=== PATIENT | female | born 1960 | race Caucasian/White ===

== ENCOUNTER → 2018-03-10 | Outpatient (CLI) | payer OTHER | END | disposition home or self-care (01) | LOC: US 14:03 | DX: E11.21 Type 2 diabetes mellitus with diabetic nephropathy (principal); K76.89 Other specified diseases of liver; I12.9 Hypertensive chronic kidney disease with stage 1 through stage 4 chronic kidney disease, or unspecified chronic kidney disease; N18.2 Chronic kidney disease, stage 2 (mild) | CPT/HCPCS: 76770 ==

== ENCOUNTER → 2020-11-07 | Outpatient (CLI) | payer MEDICARE, OTHER ==
[2020-10-04 15:00] VITALS: BP 138/60
[~2020-11-07] MED LIST: ALBU2.5V8 INH; ALPR0.25 PO; ASPI-482 PO; ASPI325T8 PO; BISA5TAB4 PO; BRIM5DRO2 EACHEYE; CLOT15CR3 TP; CRESTOR10 MG PO; CYCL5TAB PO; DEXT10CA10 PO; DEXT10TA23 PO; DEXT10TA38 PO; HYDR-2145 PO; HYDR-2761 PO; HYDR-3164 PO; INSU100C4 SQ; INSU100I11 SQ; INSU100I13 SQ; INSU100V8 SQ; INSU200I4 SQ; LATA7.5D EACHEYE; LISI-334 PO; LISI2.5T PO; LOSA25TA12 PO; METH-38 PO; METO10SO PO; METO5TAB55 PO; NAPR250T6 PO; ONDA4TAB12 PO; OXYC1TAB15 PO; PANT40TA77 PO; POLY17PO28 PO; PROM118S5 PO; TETR15DR14 OP; VENL75CA PO
--- NOTE | 2020-11-08 09:19 | RAD ---
Bilateral lower extremity arterial duplex ultrasound 11/08/2020 INDICATION: Bilateral occurring nonhealing wounds COMPARISON STUDY: CT of the abdomen and pelvis with contrast October 02, 2020 TECHNIQUE: Ultrasound evaluation of the major arteries of the bilateral lower extremities was perform ed including color Doppler imaging with spectral analysis. FINDINGS: There is diffuse severe atherosclerotic vascular disease with extensive peripheral arterial calcifica tion. Irregularity throughout the right common femoral artery is seen with blunting of waveforms. Pro ximal right profunda artery is grossly patent. There appears to be high-grade stenosis involving the proximal right SFA with elevated velocities to 220 cm/s in significant narrowing on color Doppler harleen ging. The mid right superficial femoral artery appears to be occluded. Is distal reconstitution of th e SFA, with prominent collaterals noted adjacent to the distal SFA. The popliteal artery is calcified and irregular with weak monophasic flow but appears to be grossly patent. All 3 runoff vessels demon strate monophasic flow, likely due to severity of inflow disease but appear to be grossly patent. Left common femoral artery is calcified but appears to be grossly patent. Proximal left profunda skyla ry is patent. The left SFA is occluded proximally. There is distal reconstitution. Left popliteal art anne demonstrate weak monophasic flow but appears to be patent. Evaluation of runoff vessels is limite d given the severity of inflow disease, though all 3 runoff vessels appear to be grossly patent. IMPRESSION: Severe diffuse peripheral vascular disease with apparent occlusion of the bilateral super ficial femoral arteries. Runoff vessels appear to be grossly patent. Given the severity of disease pa tient body habitus recommend CT angiography of the abdomen and pelvis with bilateral lower extremity runoff to aid in planning for subsequent endovascular and/or surgical intervention. Electronically signed by: Jose Guadalupe Casiano MD (11/08/2020 9:17 AM) [id number]
== END ==
LOC: US 14:10
PROVIDERS: ATTEND Emergency Medicine Undersea and Hyperbaric Medicine
DX: I70.203 Unspecified atherosclerosis of native arteries of extremities, bilateral legs (principal); L97.429 Non-pressure chronic ulcer of left heel and midfoot with unspecified severity; L97.419 Non-pressure chronic ulcer of right heel and midfoot with unspecified severity
CPT/HCPCS: 93925

== ENCOUNTER → 2020-11-13 | Outpatient (CLI) | payer MEDICARE, OTHER ==
[2020-10-04 15:00] VITALS: BP 138/60
[~2020-11-13] MED LIST changes: +ACET1TAB33 PO; +CRESTOR40 MG PO; +IOHEXOL 350 MG/ML 100 ML VIAL. IV ONE; -LISI-334 PO; +LISI20TA18 PO; -LOSA25TA12 PO; +LOSA25TA4 PO; +NAPR-699 PO; -NAPR250T6 PO; -POLY17PO28 PO; +POLY17PO52 PO
[2020-11-13 14:07] LABS: CREATININE 0.6 mg/dL (0.6-1.0)
--- NOTE | 2020-11-13 16:16 | RAD ---
CT angiography of the abdomen, pelvis, and bilateral lower extremities 11/13/2020 INDICATION: Bilateral nonhealing wounds. COMPARISON STUDY: Recent lower extremity arterial duplex ultrasound demonstrating bilateral SFA occlu sions. Discussion: Imaging of the abdomen, pelvis, and lower extremities was performed following the adminis tration of IV contrast. Vascular findings: Visualized descending thoracic aorta is unremarkable. There is diffuse atherosclerotic vascular disease involving the abdominal aorta. Mild narrowing of th e proximal most abdominal aorta. Plaque is seen. There is no evidence of abdominal aortic aneurysm or dissection. Celiac artery, SMA, and renal arteries appear patent. There are 4 right-sided renal skyla marisol. There are 2 left-sided renal arteries. The inferior abdominal aorta is circumferentially calcif ied and tapers resulting in mild stenosis. Mild stenosis seen in the osteopenic the bilateral common iliac arteries The more distal l right common iliac artery is patent. Right internal iliac artery is patent. Right external iliac artery is patent. Right common femoral artery mildly irregular but patent. The right profunda artery is patent. There is near occlusion of the right SFA at its ostium. There is then tota l occlusion of the proximal right SFA. There is reconstitution in the adductor canal. The popliteal a rtery is patent. All 3 runoff vessels are patent to the ankle. The dorsalis pedis artery and lateral plantar artery visualized into the foot. The left common iliac artery is otherwise patent. There is moderate stenosis of the left internal sabrina ac artery. Left the left external iliac artery is patent.. Left common femoral artery is mildly calci fied but patent. Left profunda artery is patent. There is occlusion of the left SFA at its origin aga in extending to the adductor canal where there is reconstitution. The eafru-lve-ogsx popliteal artery is mildly stenotic.. The remaining popliteal artery is patent. All 3 runoff vessels are patent on th e left with level of the ankle. Proximal lateral plantar and dorsalis pedis arteries are patent on th e left. 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 This is unchanged from prior study. Solid viscera of the abdome n demonstrate no acute abnormality. There is no bowel obstruction. No free fluid or free air is seen diastases of the abdominal rectus musculature noted. Compression deformities of the L1 and L2 vertebr al bodies noted, unchanged with respect to comparison studies. IMPRESSION: 1.Severe diffuse atherosclerotic vascular disease. With long segment occlusions of the bilateral supe rficial femoral arteries from the proximal aspect of these vessels to the adductor canal. 2. No hemodynamically significant aortoiliac stenosis or runoff vessel disease was identified. All 3 runoff vessels. Be patent and extend into patent proximal dorsalis pedis and lateral plantar arteries CT DOSING PQRS STATEMENT: One or more of the following individualized dose reduction techniques were utilized for this examinat ion: 1. Automated exposure control 2. Adjustment of the mA and/or kV according to patient size 3. Use of iterative reconstruction technique Electronically signed by: Jose Guadalupe Casiano MD (11/13/2020 4:14 PM) [id number]
== END ==
LOC: CT 13:28
PROVIDERS: ATTEND Emergency Medicine Undersea and Hyperbaric Medicine
DX: I74.5 Embolism and thrombosis of iliac artery (principal); I74.3 Embolism and thrombosis of arteries of the lower extremities; I70.203 Unspecified atherosclerosis of native arteries of extremities, bilateral legs; M85.88 Other specified disorders of bone density and structure, other site
CPT/HCPCS: 36415; 75635; 82565; 84520; Q9967

== ENCOUNTER 2020-11-28 08:05 | Outpatient (CLI) | payer MEDICARE, OTHER ==
[~2020-11-28] VITALS: Ht 152.4 cm; Wt 106.6 kg
[2020-11-28] VITALS (11 sets, daily range): BP systolic 135–170; BP diastolic 64–88
[~2020-11-28 08:05] MED LIST changes: -ACET1TAB33 PO; -CRESTOR40 MG PO; -IOHEXOL 350 MG/ML 100 ML VIAL. IV ONE; +LOSA25TA12 PO; -LOSA25TA4 PO; -NAPR-699 PO; +NAPR250T6 PO; +POLY17PO28 PO; -POLY17PO52 PO
[2020-11-28 09:22] LABS: RED BLOOD COUNT 4.91 x10^6/uL (3.50-5.40); WHITE BLOOD COUNT 10.3 x10^3/uL (4.0-11.0)
[2020-11-28 09:23] LABS: BASO # 0.1 x10^3/uL (0.0-0.2); BASO % 1 % (0-3); EOS # 0.5 x10^3/uL (0.0-0.7); EOS % 4 % (0-3); HEMOGLOBIN 12.9 g/dL (12.0-15.5); LYMPH # 2.6 x10^3/uL (1.0-4.8); LYMPH % 25 % (24-48); MEAN CORPUSCULAR HEMOGLOBIN 26 pg (25-35); MEAN CORPUSCULAR HGB CONC 33 g/dL (31-37); MEAN CORPUSCULAR VOLUME 79 fL (79-100); MONO # 0.9 x10^3/uL (0.0-1.1); MONO % 9 % (0-9); NEUT # 6.3 x10^3/uL (1.8-7.7); NEUT % 61 % (31-73); PLATELET COUNT 324 x10^3/uL (140-400); RED CELL DISTRIBUTION WIDTH 14.5 % (11.5-14.5)
[2020-11-28 09:30] LABS: CALCIUM 9.8 mg/dL (8.5-10.1); CREATININE 0.7 mg/dL (0.6-1.0); GFR 85.4; POTASSIUM 3.8 mmol/L (3.5-5.1)
[2020-11-28 09:37] LABS: ALBUMIN 3.2 g/dL (3.4-5.0); ALBUMIN/GLOBULIN RATIO 0.8 (1.0-1.7); TOTAL BILIRUBIN 0.5 mg/dL (0.2-1.0)
[2020-11-28 09:38] LABS: PROTHROMBIN TIME PATIENT 11.9 SEC (11.7-14.0)
[2020-11-28] MEDS ORDERED: HEPARIN for ARTERIAL LINE 1,500 ML ONE (10:48)
[2020-11-28] MEDS ORDERED: IODIXANOL 320 MG/ML 100 ML VIAL. ONE (10:48)
[2020-11-28] MEDS ORDERED: LIDOCAINE WITH 8.4% SOD BICARB 3 ML DISP.SYRIN. ONE (10:48)
[2020-11-28] MEDS ORDERED: HEPARIN for IV BOLUS 10,000 UNIT/10 ML VIAL. ONE (11:05)
[2020-11-28] MEDS ORDERED: MIDAZOLAM HCL/PF 5 MG/5 ML VIAL. ONE (11:05)
[2020-11-28] MEDS ORDERED: fentaNYL PF VIAL 100 MCG/2 ML VIAL ONE ×2 (11:05→12:14)
[2020-11-28] MEDS ORDERED: MIDAZOLAM HCL/PF 5 MG/5 ML VIAL. IV ONE (12:45)
[2020-11-28] MEDS ORDERED: LIDOCAINE WITH 8.4% SOD BICARB 3 ML DISP.SYRIN. IJ ONE (12:45)
[2020-11-28] MEDS ORDERED: fentaNYL PF VIAL 100 MCG/2 ML VIAL IV ONE (12:45)
[2020-11-28] MEDS ORDERED: IODIXANOL 320 MG/ML 100 ML VIAL. IART ONE (12:45)
[2020-11-28] MEDS ORDERED: HEPARIN for IV BOLUS 10,000 UNIT/10 ML VIAL. IVP ONE (12:45)
[2020-11-28] MEDS ORDERED: hydrALAZINE 20 MG/ML VIAL. ONE (12:48)
[2020-11-28] MEDS ORDERED: CONTRAST GIVEN. MC PRN (13:00)
--- NOTE | 2020-11-28 13:54 | NUR ---
Notified Dr. Casiano of patient's increased itching, redness on face, arms. Order received to give 50mg IV Benadryl. Medications given were not known allergies.
[2020-11-28] MEDS ORDERED: diphenhydrAMINE 50 MG/ML VIAL ONE (13:56)
[2020-11-28] MEDS ORDERED: hydrALAZINE 20 MG/ML VIAL. IVP ONE (14:00)
[2020-11-28] MEDS ORDERED: diphenhydrAMINE 50 MG/ML VIAL IVP ONE (14:15)
--- NOTE | 2020-11-28 14:37 | NUR ---
Benadryl given, itching has subsided. Dr. Casiano came on unit. Patient states this is "common" and she was itching and red when she woke up this morning. Her cats "stir up her allergies". No bleeding at access site, lunch provided to patient.
--- NOTE | 2020-11-28 14:51 | NUR ---
Patient sat up to 30 degrees in bed at 1445. Verified w/ Dr. Casiano that patient is okay to be discharged at 1530 as long as there is no bleeding at site.
--- NOTE | 2020-11-28 15:43 | NUR ---
Instructions provided on site care, bleeding, moderate sedation. Verbalized understanding. RN stressed importance of monitoring for bleeding, not lifting, keeping site dry/clean. No bleeding at site at time of d/c. PIV removed by RN. Dr. Casiano states he will be contacting Dr. Fernandez w/ wound care tomorrow 11/29 to discuss plan. Patient aware and sees Wound Care on 11/30. Benadryl given per Dr. Casiano's order, patient's itching and redness subsided. Appears to have redness at ECG patch sites-- RN advised patient to continue w/ Benadryl PO at home for 24 hrs (per Dr. Casiano). States she has Benadryl at home. Advised to go to closest ER/call 911 if she had any breathing issues. Patient states she has "very sensitive skin" and this is not abnormal for her. No breathing issues at this time. Patient taken to friend's vehicle via wheelchair. All belongings taken w/ patient at time of d/c, including purse, phone and cane.
--- NOTE | 2020-11-30 13:05 | RAD ---
11/29/2020 9:59 AM Procedure: 1. Bilateral lower extremity angiography 2. Attempted recanalization of chronic total occlusion, long segment, left superficial femoral artery Clinical Indication: Peripheral vascular disease. Bilateral superficial femoral artery occlusion. Poorly healing wound to the bilateral heels. Claudication. Discussion: The procedure was explained in its entirety to the patient or the patients designated kiosk sales representative by a member of the treatment team, including a discussion of the risks, benefits and commonly accepted alternatives to the procedure, as well as the expected consequences of no therapy whatsoever. Discussion of the risks included, but was not limited to, those that are most frequent and those that are rare but possibly severe or life-threatening, as well as the possibility of unforeseen complications. All elements of maximal sterile barrier technique including the use of a cap, mask, sterile gown, sterile gloves, large sterile sheet, appropriate hand hygiene, and 2% chlorhexidine for cutaneous antisepsis (or acceptable alternative antiseptic per current guidelines) were followed for this procedure. Total fluoroscopy time: 34.2 minutes Dose area product: 304 Gycm2 The procedures performed under conscious sedation including continuous cardiopulmonary monitoring via dedicated sedation nurse. Owha-oj-bast sedation time: 99 minutes The risks and benefits of the procedure were discussed the patient as described. Informed consent was obtained. A timeout procedure was performed. The patient was placed in the supine position. The right common femoral artery was evaluated by ultrasound found to be patent. The artery was accessed under direct ultrasound guidance. Fluoroscopic guidance was also used. Reference images were saved the medical record. 5 Nigerien vascular sheath was placed. Catheter was advanced into the contralateral common femoral artery. Angiography demonstrates chronic total occlusion of the proximal left superficial artery. The profunda artery is patent. There is reconstitution of the SFA in the adductor canal. The pehrj-vhp-cmez popliteal artery is somewhat small but patent. Numerous well-developed collaterals feed the heslz-cyy-xkzd popliteal artery. The popliteal artery unggl-pke-wyrj is patent. All 3 runoff vessels are patent on the left. Also noted is a somewhat hyperemic appearance of the right heel with significant arterial supply to the heel. Attempts were made to traverse the chronic total occlusion of the left superficial femoral artery which were ultimately unsuccessful. Angiography of the right lower extremity was performed demonstrating very similar appearance to the contralateral side with chronic total occlusion of the superficial femoral artery with reconstitution in the adductor canal. The right popliteal artery is patent. All 3 runoff vessels are patent on the right. 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 Attempted but unsuccessful endovascular recanalization of the left superficial femoral artery 3.Given the numerous large well-developed collaterals, and apparent hyperemia of the left heel, the necessity of endovascular intervention for wound healing is uncertain. The patient reports possible claudication, reports that her chronic back pain limits her mobility more than her lower extremity pain/claudication. Per conversations with wound care and vascular surgery she is a poor surgical candidate for femoropopliteal bypass. Attempted endovascular recanalization of the right superficial femoral artery, and repeat intervention on the left is reasonable in attempt to improve claudication, I would likely improve perfusion distally and therefore promote wound healing. This will be discussed with the patient In my opinion a more aggressive intervention such as tibial vessel access and a safari type procedure should be preserved in the setting of critical limb Ischemia/limb salvage.
== END 2020-11-28 15:40 | disposition home or self-care (01) ==
LOC: INTRAD 08:05
PROVIDERS: ATTEND Nurse Practitioner Family
DX: I70.233 Atherosclerosis of native arteries of right leg with ulceration of ankle (principal); I25.10 Atherosclerotic heart disease of native coronary artery without angina pectoris; I10 Essential (primary) hypertension; E78.00 Pure hypercholesterolemia, unspecified; M19.90 Unspecified osteoarthritis, unspecified site; G47.30 Sleep apnea, unspecified; E66.9 Obesity, unspecified; J45.909 Unspecified asthma, uncomplicated; E11.42 Type 2 diabetes mellitus with diabetic polyneuropathy; F41.9 Anxiety disorder, unspecified; F32.9 Major depressive disorder, single episode, unspecified; Z87.891 Personal history of nicotine dependence; Z90.49 Acquired absence of other specified parts of digestive tract; Z90.710 Acquired absence of both cervix and uterus; Z98.890 Other specified postprocedural states; Z79.4 Long term (current) use of insulin; Z79.82 Long term (current) use of aspirin; Z72.89 Other problems related to lifestyle; Z88.1 Allergy status to other antibiotic agents; Z88.2 Allergy status to sulfonamides; Z88.8 Allergy status to other drugs, medicaments and biological substances; Z83.3 Family history of diabetes mellitus; Z20.822 Contact with and (suspected) exposure to COVID-19
CPT/HCPCS: 36247; 36415; 75716; 76937; 80053; 85025; 85610; 87426; 99152; 99153; C1713; C1760; C1769; C1892; C1894; C9803; J0360; J1200; J1644; J2250; J3010; J3490; Q9967; U0003; G0269

== ENCOUNTER → 2021-02-15 | Outpatient (CLI) | payer MEDICARE, OTHER ==
[2020-11-28 15:15] VITALS: BP 155/69
[~2021-02-15] MED LIST changes: +ACET1TAB33 PO; +CRESTOR40 MG PO; +NAPR-699 PO; -NAPR250T6 PO; -POLY17PO28 PO; +POLY17PO52 PO
== END ==
LOC: LAB 14:55
PROVIDERS: ATTEND Orthopaedic Surgery
DX: Z01.812 Encounter for preprocedural laboratory examination (principal); Z20.822 Contact with and (suspected) exposure to COVID-19; G56.03 Carpal tunnel syndrome, bilateral upper limbs; R22.31 Localized swelling, mass and lump, right upper limb
CPT/HCPCS: U0003; U0005

== ENCOUNTER 2021-02-19 06:08 | Day surgery (SDC) | payer MEDICARE, OTHER ==
[~2021-02-19] VITALS: Ht 157.5 cm; Wt 108.0 kg
[~2021-02-19 06:08] MED LIST changes: -ACET1TAB33 PO; +DEXAMETHASONE SOD PHOS 4 MG/ML VIAL ONE; +HYDROmorphone 2 MG/ML VIAL IVP PRN; +IV RINGERS,LACTATED 1000ML 1,000 ML IV SCH; +LIDOCAINE 2% PF 5 ML VIAL. ONE; +ONDANSETRON PF 4 MG/2 ML VIAL. ONE; +PROCHLORPERAZINE 10 MG/2 ML VIAL. IVP PRN; +PROPOFOL 10 MG/ML (20ML) VIAL. IV ONE; +SEVOFLURANE 31 TO 60 MINUTES. IH ONE; +fentaNYL PF VIAL 100 MCG/2 ML VIAL IVP PRN; +fentaNYL PF VIAL 100 MCG/2 ML VIAL ONE
[2021-02-19] MEDS ORDERED: ePHEDrine PF IN SALINE 50 MG/10 ML SYRINGE. IV ONE (06:11)
[2021-02-19] MEDS ORDERED: KETOROLAC 30 MG/ML VIAL. ONE (06:14)
[2021-02-19] MEDS ORDERED: INSULIN LISPRO 100 UNIT/ML 3ML VIAL for OP,RR ONLY. SQ ONE (07:00)
[2021-02-19] MEDS ORDERED: INSULIN LISPRO 100 UNIT/ML 3ML VIAL for OP,RR ONLY. SQ PRN (07:00)
[2021-02-19] MEDS ORDERED: BUPIVACAINE-EPI 0.5%-1:200000 MPF 30 ML VIAL. ONE (07:25)
[2021-02-19] MEDS ORDERED: BUPIVACAINE-EPI 0.25% 30 ML VIAL KIT. ONE (07:25)
[2021-02-19] MEDS ORDERED: ACET1TAB33 PO (07:39)
--- NOTE | 2021-02-19 07:41 | DISCH ---
DISCHARGE INSTRUCTIONS Condition on Discharge Condition on Discharge: Stable Activity After Discharge Activity Instructions for Disc: Other, see below (Avoid hard to grasp, may perform fine motor use such as eating writing typing) Bathing Instructions: Shower-keep dressing dry Lifting Instructions after Dis: No heavy lifting Weight Bearing Status after Di: As tolerated Diet after Discharge Diet after Discharge: Diabetic No Calorie Level Wound Incision Care Wound/Incision Care: Ice to area for comfort, Do not change dressing (Keep dressing intact unless soiled keep dry and covered in shower) Contacting the DRParish after DC Call your doctor for: Concerns you may have Follow-Up Follow up with: Dr. Friedman or Mata 10 days Treatment/Equipment after DC Adaptive Equipment Issued: None BRANDIE FRIEDMAN MD February 19, 2021 07:41
--- NOTE | 2021-02-19 08:21 | PDOC4 ---
Operative Note Operative Note Date of surgery: 02/19/2021 Preoperative diagnosis: Right carpal tunnel syndrome, mass right index finger Postoperative diagnosis: Same with moderate median nerve compression at the carpal tunnel, right solid mass right index finger Operative procedure: Right carpal tunnel release, excision mass right index finger Surgeon: Eldre Assist: Francois mims Anesthesia: General Estimated blood loss: 1 cc Right finger mass to pathology Complications: None Operative indications: Patient has numbness and pain in the right hand median nerve distribution with EMG findings confirming carpal tunnel syndrome with median nerve compression. Right finger mass is freely mobile over the radial a spect of the proximal inner phalangeal joint and is increasingly larger and painful. I had gone over with her the risks benefits postoperative course of removal of the mass the possibility of additional procedures if pathology determines that it is more concerning for any type of malignancy. I also covered the possibility of nerve or blood vessel damage incomplete relief from the carpal tunnel release surgery among others all her questions were answered she agrees to proceed with surgical evaluation and treatment Operative text: Patient was identified procedure verified patient placed in the supine position on the operating table. After adequate amounts of general anesthesia were administered the right upper extremity was prepped and draped in standard sterile fashion with an upper arm tourniquet. After timeout was performed patient procedure identified and verified the right upper extremity was exsanguinated by Esmarch bandage tourniquet inflated to 250 mmHg and an incision was made longitudinally just distal to the distal palmar crease dissection carried out to the transverse carpal ligament which was released entirely verified visually and palpably. Median nerve was noted to have moderate compression and no evidence of synovitis or compromise of the flexor tendons noted. A longitudinal incision was then made over the radial aspect of the proximal interphalangeal joint of the right index finger overlying the finger mass and careful dissection used to remove the mass in its entirety with no residual. It appears to be solid in nature and was sent for pathological evaluation. Irrigation was carried out of both incisions bleeding points controlled by electrocautery and closure accomplished with nylon suture. Sterile soft dressings were applied patient was returned to recovery room in stable condition and fingers were noted be warm pink following deflation of the tourniquet. Francois mims was present for the procedure and assisted in patient positioning prepping draping retraction closure and dressings BRANDIE LONGO MD February 19, 2021 08:21
[2021-02-19] MEDS ORDERED: PROCHLORPERAZINE 10 MG/2 ML VIAL. ONE (08:41)
[2021-02-19] MEDS ORDERED: ACETAMINOPHEN/CODEINE 300/30MG TABLET. PO ONE (08:45)
[2021-02-19 09:45] VITALS: BP 124/65
--- NOTE | 2021-02-21 18:10 | PATHOLOGY ---
[facility] Accession Number: [id number] . 01 Material submitted: . finger - RIGHT INDEX FINGER MASS. Modifiers: INDEX, right . 02 Diagnosis: Segments of dense fibroconnective and fibroadipose tissue, right index finger mass excision: - Tenosynovial giant cell tumor, localized type. (JPM:kiya; 02/21/2021) QMS 02/21/2021 1743 Local . 02 Electronically signed: . Valentin Fowler MD, Pathologist NPI- [id number] . 01 Gross description: . The specimen is received in formalin, labeled "Mira Regalado", "right index finger mass". Received is a well circumscribed segment of firm, nodular pale garcia-dark yellow soft tissue measuring 1.5 x 1.0 x 0.6 cm. The surgical resection margin is inked black. Sectioning reveals a homogenous, smooth dark yellow-garcia cut surface. The specimen is trisected and entirely submitted in cassette A1.([facility]; 02/20/2021) CAROLYN/JOHN 02/20/2021 0912 Local . 02 Pathologist provided ICD-10: G56.01 . 02 CPT . 805525 Specimen Comment: A courtesy copy of this report has been sent to [phone] Specimen Comment: Report sent to Performed at: 01 [facility] [address], [place] [id number] MD Brice Caal MD Phone: [phone] Performed at: 02 [facility] [address], [place] [id number] MD Valentin Fowler MD Phone: [phone]
== END 2021-02-19 10:24 | disposition home or self-care (01) ==
LOC: SURG 06:08
PROVIDERS: ATTEND Orthopaedic Surgery
DX: G56.01 Carpal tunnel syndrome, right upper limb (principal); I25.10 Atherosclerotic heart disease of native coronary artery without angina pectoris; I10 Essential (primary) hypertension; E78.00 Pure hypercholesterolemia, unspecified; G47.30 Sleep apnea, unspecified; J45.909 Unspecified asthma, uncomplicated; E66.9 Obesity, unspecified; E11.9 Type 2 diabetes mellitus without complications; M19.90 Unspecified osteoarthritis, unspecified site; F41.9 Anxiety disorder, unspecified; F32.9 Major depressive disorder, single episode, unspecified; Z90.49 Acquired absence of other specified parts of digestive tract; Z90.710 Acquired absence of both cervix and uterus; Z98.890 Other specified postprocedural states; Z79.899 Other long term (current) drug therapy; Z87.891 Personal history of nicotine dependence; Z79.84 Long term (current) use of oral hypoglycemic drugs; Z82.49 Family history of ischemic heart disease and other diseases of the circulatory system; Z88.2 Allergy status to sulfonamides; Z88.1 Allergy status to other antibiotic agents; Z88.8 Allergy status to other drugs, medicaments and biological substances
CPT/HCPCS: 26111; 64721; 82962; 88304; A4930; A6402; J0690; J0780; J1100; J1815; J1885; J2405; J2704; A4657; A6452; J3010

== ENCOUNTER → 2021-07-10 | Outpatient (CLI) | payer MEDICARE, OTHER ==
[~2021-07-10] MED LIST changes: +ACET1TAB33 PO; -DEXAMETHASONE SOD PHOS 4 MG/ML VIAL ONE; -HYDROmorphone 2 MG/ML VIAL IVP PRN; -IV RINGERS,LACTATED 1000ML 1,000 ML IV SCH; -LIDOCAINE 2% PF 5 ML VIAL. ONE; -LISI2.5T PO; +LISI2.5T12 PO; -LOSA25TA12 PO; +LOSA25TA4 PO; -ONDANSETRON PF 4 MG/2 ML VIAL. ONE; -PROCHLORPERAZINE 10 MG/2 ML VIAL. IVP PRN; -PROPOFOL 10 MG/ML (20ML) VIAL. IV ONE; -SEVOFLURANE 31 TO 60 MINUTES. IH ONE; -fentaNYL PF VIAL 100 MCG/2 ML VIAL IVP PRN; -fentaNYL PF VIAL 100 MCG/2 ML VIAL ONE
--- NOTE | 2021-07-10 14:44 | RAD ---
MG DIAGNOSTIC BILAT, US BREAST RT 07/10/2021 1:08 PM INDICATION: Bilateral breast pain, diffuse. COMPARISON: None available TECHNIQUE: 2D CC and MLO projections were obtained of each breast. Spot compression CC and MLO views of the right breast and spot compression cc view of the left breast was performed. Targeted ultrasoun d evaluation of the right breast was performed. FINDINGS: Breast density: Category B: There are scattered areas of fibroglandular density. Right breast: There is focal asymmetry identified within the upper right breast at central depth, gigi roximately 10 to 11 cm from the nipple. Spot compression CC and MLO views of the right breast with re sidual focal asymmetry. Targeted ultrasound evaluation of the right breast was performed with ultraso und evaluation at the 12 clock position, 10 cm, 11 cm, 9 cm and 8 cm from the nipple as well as 11:00 position, 10 cm and 9 cm from the nipple. Right axilla was imaged. There is dense fibroglandular tis wendy identified in the area of concern suggesting overlapping fibroglandular tissue on radiographs. No suspicious masses, areas of architectural distortion or calcifications identified. Left breast: Asymmetry identified within the central left breast along the posterior nipple line on t he left cc view appears to compress with spot compression suggesting overlapping fibroglandular tissu e. IMPRESSION: Negative bilateral mammogram. BI-RADS category: 1; Negative Recommendations: Clinical management of patient's breast pain. Negative ultrasound and mammogram shou ld not preclude additional imaging if symptoms warrant. Otherwise, annual screening mammography is re commended. Electronically signed by: Almita Cobos MD (07/10/2021 2:42 PM) [facility]
== END ==
LOC: MAMMO 13:09
PROVIDERS: ATTEND Family Medicine
DX: R92.8 Other abnormal and inconclusive findings on diagnostic imaging of breast (principal)
CPT/HCPCS: 76641; 77066

== ENCOUNTER → 2021-08-12 | Outpatient (CLI) | payer MEDICARE, OTHER ==
--- NOTE | 2021-08-14 14:43 | SLEEP ---
DATE OF STUDY: 08/12/2021 POLYSOMNOGRAM REPORT OBJECTIVE: The patient is a 61-year-old female with a previous diagnosis of sleep apnea. Her last sleep study was more than 10 years ago and she needs a new machine. She has trouble falling asleep and staying asleep as well as snoring, fatigue, observed apnea, excessive somnolence, awakening short of breath. Meyers Chuck sleep score 4. Height 245 pounds, weight 5 feet 0 inches, body mass index 48. INTERPRETATION: Sleep architecture is characterized by sleep efficiency of 73% across 8.7 hours of recording time. There is absence of REM sleep. The sleep onset latency is 55.5 minutes. Pretreatment respiratory monitoring shows an apnea-hypopnea index of 128.8 events per hour of sleep. The vast majority of the events are obstructive. The patient is started on treatment and on BiPAP of , the apnea-hypopnea index falls to 2.8 events per hour of sleep. The minimum oxygen saturation is 84%. Periodic limb movements of sleep occur at the rate of 9 events per hour of sleep. No cardiac arrhythmia is observed. IMPRESSION: Abnormal polysomnogram showing severe obstructive sleep apnea-hypopnea, treatable on BiPAP using a [employer]ics DreamWear Wisp nasal mask, medium size. RECOMMENDATIONS: 1. My office will attempt to arrange this setting for the patient. 2. The patient should avoid sedatives and alcohol and pursue weight loss. Thank you for letting us help with the patient's care. CARLITOS DR: Minerva TID: [id number] CC: JENISE CEDILLO MD
== END ==
LOC: SLPLAB 18:59
PROVIDERS: ATTEND Psychiatry & Neurology Neurology with Special Qualifications in Child Neurology
DX: G47.33 Obstructive sleep apnea (adult) (pediatric) (principal)
CPT/HCPCS: 95810